=== PATIENT | female | born 1975 | race American Indian/Alaskan Native ===

== ENCOUNTER 2021-06-17 06:59 | Emergency (ER) | payer SELFPAY ==
[2021-06-17 07:11] VITALS: BP 138/76
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
== END 2021-06-17 08:01 | disposition home or self-care (01) ==
LOC: ED 06:59
DX: M25.572 Pain in left ankle and joints of left foot (principal)
CPT/HCPCS: 99283

== ENCOUNTER 2021-06-30 10:34 | Emergency (ER) | payer SELFPAY ==
--- NOTE | 2021-06-30 11:18 | Emergency Department Report ---
Blank Doc - Documentation Documentation: Patient eloped from department prior to being evaluated by me and prior to com pletion of triage
== END 2021-06-30 11:36 | disposition left against medical advice (07) ==
LOC: ED 10:34
DX: E86.0 Dehydration (principal); Z53.21 Procedure and treatment not carried out due to patient leaving prior to being seen by health care provider

== ENCOUNTER 2021-07-01 02:09 | Emergency (ER) | payer SELFPAY ==
[2021-07-01 02:28] VITALS: BP 108/72
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
== END 2021-07-01 05:04 | disposition home or self-care (01) ==
LOC: ED 02:09
DX: M25.571 Pain in right ankle and joints of right foot (principal); G89.29 Other chronic pain
CPT/HCPCS: 99282

== ENCOUNTER 2021-07-02 04:40 | Emergency (ER) | payer SELFPAY | END 2021-07-02 06:12 | LOC: ED 04:40 | DX: R12 Heartburn (principal); Z53.21 Procedure and treatment not carried out due to patient leaving prior to being seen by health care provider ==

== ENCOUNTER 2021-07-07 01:49 | Emergency (ER) | payer SELFPAY ==
[2021-07-07 02:10] VITALS: BP 109/78
--- NOTE | 2021-07-07 09:51 | Emergency Department Report ---
Blank Doc - Documentation Documentation: This patient has been called 3 times and has been in our emergency room for 7 hours and 59 minutes. I made an attempt to evaluate patient she is still in the lobby and tells me that she is not ready to be seen. Nursing staff asked called her 3 times. I just informed charge nurse of this incident.
== END 2021-07-07 02:05 | disposition left against medical advice (07) ==
LOC: ED 01:49
DX: J40 Bronchitis, not specified as acute or chronic (principal); M54.50 Low back pain, unspecified; Z53.21 Procedure and treatment not carried out due to patient leaving prior to being seen by health care provider

== ENCOUNTER 2021-07-07 07:10 | Emergency (ER) | payer SELFPAY ==
[2021-07-07 09:16] VITALS: BP 109/71
== END 2021-07-07 09:15 | disposition left against medical advice (07) ==
LOC: ED 07:10
DX: M54.9 Dorsalgia, unspecified (principal); Z53.21 Procedure and treatment not carried out due to patient leaving prior to being seen by health care provider

== ENCOUNTER 2021-07-08 02:08 | Emergency (ER) | payer SELFPAY ==
[2021-07-08 03:57] VITALS: BP 107/55
== END 2021-07-08 04:00 | disposition left against medical advice (07) ==
LOC: ED 02:08
DX: M54.50 Low back pain, unspecified (principal); R10.9 Unspecified abdominal pain; Z53.21 Procedure and treatment not carried out due to patient leaving prior to being seen by health care provider

== ENCOUNTER 2021-08-29 02:23 | Emergency (ER) | payer SELFPAY | END 2021-08-31 04:17 | LOC: ED 02:23 | DX: M62.838 Other muscle spasm (principal); Z53.21 Procedure and treatment not carried out due to patient leaving prior to being seen by health care provider ==

== ENCOUNTER 2021-08-30 06:14 | Emergency (ER) | payer SELFPAY ==
[2021-08-30 08:24] VITALS: BP 104/60
== END 2021-08-30 11:50 | disposition left against medical advice (07) ==
LOC: ED 06:14
DX: M54.2 Cervicalgia (principal); Z53.21 Procedure and treatment not carried out due to patient leaving prior to being seen by health care provider

== ENCOUNTER 2021-09-05 00:21 | Emergency (ER) | payer SELFPAY ==
[2021-09-05 03:14] VITALS: BP 105/66
== END 2021-09-05 03:30 | disposition left against medical advice (07) ==
LOC: ED 00:21
DX: M54.2 Cervicalgia (principal); M79.89 Other specified soft tissue disorders; Z53.21 Procedure and treatment not carried out due to patient leaving prior to being seen by health care provider

== ENCOUNTER 2022-04-05 21:14 | Emergency (ER) | payer SELFPAY ==
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
[2022-04-06 06:55] VITALS: BP 126/87
== END 2022-04-06 06:51 | disposition home or self-care (01) ==
LOC: ED 21:14
DX: S81.011D Laceration without foreign body, right knee, subsequent encounter (principal); X58.XXXD Exposure to other specified factors, subsequent encounter
CPT/HCPCS: 99282